=== PATIENT | female | born 1985 | race Caucasian/White ===

== ENCOUNTER 2016-09-16 08:58 | Emergency (ER) | payer SELFPAY ==
[~2016-09-16] VITALS: Ht 149.9 cm; Wt 71.7 kg
[~2016-09-16 08:58] MED LIST: CEPH500T PO; HYDR-971 PO
[2016-09-16 09:12] VITALS: BP 129/77
[2016-09-16] MEDS ORDERED: CLIN-44 PO (09:19)
[2016-09-16] MEDS ORDERED: HYDR-971 PO (09:19)
--- NOTE | 2016-09-16 09:19 | PHYS DOC ---
Past Medical History Past Medical History: Anxiety, Depression Additional Past Medical Histor: PTSD Past Surgical History: Other Additional Past Surgical Histo: LEAP Procedure Alcohol Use: Occasionally Drug Use: None Adult General Chief Complaint Chief Complaint: DENTAL PROBLEM HPI HPI Patient is a 31 year old female who presents with dental pain. Patient reports nearly 1 month history of pain to front maxillary teeth. Denies fevers or chills , nausea or vomiting, drainage, trismus, difficulty breathing or swallowing. Has not seen a dentist. Review of Systems Review of Systems Constitutional: Denies fever or chills HENT: Reports dental pain Respiratory: Denies cough or shortness of breath Cardiovascular: Denies chest pain GI: Denies abdominal pain, nausea, vomiting Musculoskeletal: Denies back pain or joint pain Integument: Denies rash Neurologic: Denies headache Current Medications Current Medications Current Medications Medications (Trade) Dose Ordered Sig/Shyann Start Time Stop Time Status Last Admin Dose Admin Acetaminophen/ Hydrocodone Bitart (Lortab 5/325) 2 tab 1X ONCE 09/16/16 09:30 09/16/16 09:30 DC 09/16/16 09:21 2 TAB Allergies Allergies Allergies Coded Allergies Type Severity Reaction Last Updated Verified amoxicillin Adverse Reaction Intermediate "N/V/D" 09/16/16 No Physical Exam Physical Exam Constitutional: Well developed, well nourished, no acute distress, non-toxic appearance. HENT: Normocephalic, atraumatic, bilateral external ears normal, oropharynx moist, nose normal. poor dentition with severe decay & missing teeth. tooth # 8 blackened, surrounding gingival erythema & inflammation without palpable abscess, no trismus, no jaw swelling. Eyes: conjunctiva normal, no discharge. Cardiovascular: no edema. Lungs & Thorax: no respiratory distress. Abdomen: nondistended. Skin: Warm, dry, Extremities: No deformity Neurologic: Alert and oriented X 3 Current Patient Data Vital Signs Vital Signs Date Time Temp Pulse Resp B/P Pulse Ox O2 Delivery O2 Flow Rate FiO2 09/16/16 09:21 18 98 Room Air 09/16/16 09:12 98.2 91 98.2 EKG EKG [] Radiology/Procedures Radiology/Procedures [] Course & Med Decision Making Course & Med Decision Making Pertinent Labs and Imaging studies reviewed. (See chart for details) Patient presents with dental infection. No sign of abscess at this time. Continue ibuprofen and apply ice packs. Gave prescription for [place] for severe breakthrough pain, advised not to drink alcohol or drive while taking this medication. She did receive a dose here and has a ride so she will not be driving. She has penicillin allergies to provided prescription for clindamycin. Recommend follow up as soon as possible with a dentist for definitive management. Patient discharged home in stable condition. [] Dragon Disclaimer Dragon Disclaimer This electronic medical record was generated, in whole or in part, using a voice recognition dictation system. Departure Departure Impression: Primary Impression: Dental infection Disposition: HOME, SELF-CARE Condition: STABLE Referrals: NO PCP (PCP) Patient Instructions: Dental Pain, [id number] Additional Instructions: You were seen in the emergency department today for dental pain & infection. Please rest, apply ice packs, take ibuprofen 600 mg (3 tablets) 3 times daily, use norco for severe breakthrough pain, take antibiotics. No drinking alcohol or driving while taking norco. Follow up as soon as possible with a dentist. Come back for difficulty breathing or swallowing, or otherwise worsening condition. Scripts Clindamycin Hcl 150 Mg [id number] Mg PO TID #63 CAP Prov:TERESO CARRINGTON MD 09/16/16 Hydrocodone/Apap 5-325 ([place] 5-325 Tablet)1 Each Tablet1 Tab PO PRN Q6HRS PRN PAIN #10 TAB Prov:TERESO CARRINGTON MD 09/16/16 TERESO CARRINGTON MD Sep 16, 2016 09:19
[2016-09-16] MEDS ORDERED: HYDROCODONE/APAP 5/325MG TABLET. PO ONE (09:30)
== END 2016-09-16 09:28 | disposition home or self-care (01) ==
LOC: ER 08:58
DX: K04.7 Periapical abscess without sinus (principal); F43.10 Post-traumatic stress disorder, unspecified; Z88.1 Allergy status to other antibiotic agents
CPT/HCPCS: 99283

== ENCOUNTER 2017-01-06 01:00 | Inpatient (IN) | payer SELFPAY ==
[~2017-01-06] VITALS: Ht 149.9 cm; Wt 71.7 kg
[~2017-01-06 01:00] MED LIST changes: +CLIN150C14 PO
[2017-01-06 02:29] LABS: BILIRUBIN,URINE NEGATIVE (NEG); GLUCOSE,URINE NEGATIVE (NEG); NITRITE,URINE NEGATIVE (NEG); PH,URINE 6.5; PROTEIN,URINE NEGATIVE (NEG-TRACE); UROBILINOGEN,URINE 0.2 mg/dL (0.2 mg/dL)
[2017-01-06 02:36] LABS: BACTERIA,URINE MOD /HPF (0-FEW); RBC,URINE 0 /HPF (0-2); SQUAMOUS EPITHELIAL CELL,UR FEW /LPF; WBC,URINE OCC /HPF (0-4)
[2017-01-06 02:43] LABS: BASO # 0.1 x10^3/uL (0.0-0.2); BASO % 1 % (0-3); EOS % 2 % (0-3); HEMATOCRIT 40.5 % (36.0-47.0); HEMOGLOBIN 13.3 g/dL (12.0-15.5); LYMPH # 2.9 x10^3/uL (1.0-4.8); LYMPH % 31 % (24-48); MEAN CORPUSCULAR HEMOGLOBIN 29 pg (25-35); MEAN CORPUSCULAR HGB CONC 33 g/dL (31-37); MEAN CORPUSCULAR VOLUME 88 fL (79-100); MONO % 7 % (0-9); NEUT % 58 % (31-73); PLATELET COUNT 300 x10^3/uL (140-400); RED BLOOD COUNT 4.58 x10^6/uL (3.50-5.40); RED CELL DISTRIBUTION WIDTH 13.6 % (11.5-14.5); WHITE BLOOD COUNT 9.3 x10^3/uL (4.0-11.0)
[2017-01-06] MEDS ORDERED: ONDANSETRON PF 4 MG/2 ML VIAL. IV ONE (03:00)
[2017-01-06] MEDS ORDERED: IV NORMAL SALINE 1000ML BAG 1,000 ML IV SCH (03:00)
[2017-01-06] MEDS ORDERED: KETOROLAC TROMETHAMINE 30 MG/ML INJ. IV ONE (03:00)
[2017-01-06 03:10] LABS: CALCIUM 8.7 mg/dL (8.5-10.1); CREATININE 0.7 mg/dL (0.6-1.0); GFR 98.9
[2017-01-06 03:16] LABS: ALBUMIN 3.3 g/dL (3.4-5.0); ALBUMIN/GLOBULIN RATIO 0.8 (1.0-1.7); TOTAL BILIRUBIN 0.1 mg/dL (0.2-1.0); TOTAL PROTEIN 7.2 g/dL (6.4-8.2)
--- NOTE | 2017-01-06 03:28 | RAD ---
INDICATION: RUQ PAIN, N/V/ COMPARISON: None. TECHNIQUE: Grayscale and color ultrasound images obtained through the abdomen. FINDINGS: Aorta/IVC: Visualized portion unremarkable. Pancreas: Visualized portions unremarkable. Portions are not well seen. Liver: Echotexture within normal limits. Gallbladder: Suspected stone in the gallbladder neck. There is some distention of the gallbladder. Common Bile Duct: Not dilated. Right Kidney: No hydronephrosis. IMPRESSION: Stone is identified with within the gallbladder neck region with some distention of the gallbladder. Electronically signed by: Elliot Mathews MD (01/06/2017 3:25 AM) [id number]
[2017-01-06] MEDS ORDERED: fentaNYL PF VIAL 100 MCG/2 ML VIAL IV PRN ×2 (04:30→08:30)
[2017-01-06] MEDS ORDERED: ONDANSETRON PF 4 MG/2 ML VIAL. IV PRN ×2 (05:30→08:21)
[2017-01-06] MEDS: MORPHINE SULFATE 4 MG/ML DISP.SYRIN. IV PRN ×3 (06:17→16:11)
[2017-01-06] MEDS: IV NORMAL SALINE 1000ML BAG 1,000 ML IV SCH ×3 (06:17→20:48)
[2017-01-06 07:00] VITALS: BP 123/79
[2017-01-06] MEDS ORDERED: CLON0.5T PO (07:46)
[2017-01-06] MEDS ORDERED: BUPR150T15 PO (07:46)
--- NOTE | 2017-01-06 07:46 | ED.ADGEN ---
Past Medical History Past Medical History: Anxiety, Depression Additional Past Medical Histor: ptsd, "cutting" Past Surgical History: Other Additional Past Surgical Histo: LEAP Procedure Alcohol Use: Occasionally Drug Use: None Adult General Chief Complaint Chief Complaint: ABDOMINAL PAIN HPI HPI Patient is a 31 year old woman, history of anxiety, depression, PTSD, who presents the emergency department with a complaint of recurrent abdominal pain associated with nausea, and vomiting. Denies any diarrhea, denies any fevers or chills, denies any injuries, any weakness, numbness or tingling. States pain begins in the epigastric and right upper quadrant and wraps around to her right back. She states that she has a feeling of "fullness", and sharp stabbing pain that is initiated with any oral intake. She states it is been growing progressively worse and more persistent over the past several weeks. Patient has not previously sought evaluation for this issue, states that tonight the pain was more persistent, and associated with worsening nausea and vomiting, prompting her to come to the ED for evaluation. She is not previously had any surgeries or procedures performed in her abdomen. Review of Systems Review of Systems Constitutional: Denies fever or chills. [] Eyes: Denies change in visual acuity. [] HENT: Denies nasal congestion or sore throat. [] Respiratory: Denies cough or shortness of breath. [] Cardiovascular: Denies chest pain or edema. [] GI: Upper abdominal pain radiating to the back, nausea, vomiting, no bloody stools or diarrhea. : Denies dysuria. [] Musculoskeletal: Denies back pain or joint pain. [] Integument: Denies rash. [] Neurologic: Denies headache, focal weakness or sensory changes. [] Endocrine: Denies polyuria or polydipsia. [] Lymphatic: Denies swollen glands. [] Psychiatric: Denies depression or anxiety. [] Current Medications Current Medications Current Medications Medications (Trade) Dose Ordered Sig/Shyann Start Time Stop Time Status Last Admin Dose Admin Ketorolac Tromethamine (Toradol) 10 mg 1X ONCE 01/06/17 03:00 01/06/17 03:01 DC 01/06/17 03:06 10 MG Ondansetron HCl (Zofran) 4 mg 1X ONCE 01/06/17 03:00 01/06/17 03:01 DC 01/06/17 03:05 4 MG Sodium Chloride 1,000 ml @ 1,000 mls/hr Q1H 01/06/17 03:00 01/06/17 03:59 DC 01/06/17 03:05 1,000 MLS/HR Allergies Allergies Allergies Coded Allergies Type Severity Reaction Last Updated Verified amoxicillin Adverse Reaction Intermediate "N/V/D" 09/16/16 No Physical Exam Physical Exam Constitutional: Well developed, well nourished, appears uncomfortable, non- toxic appearance. [] HENT: Normocephalic, atraumatic, bilateral external ears normal, oropharynx moist, no oral exudates, nose normal. [] Eyes: PERRLA, EOMI, conjunctiva normal, no discharge. [] Neck: Normal range of motion, no tenderness, supple, no stridor. [] Cardiovascular:Heart rate regular rhythm, no murmur, S1, S2, no rubs or gallops. [] Lungs & Thorax: Bilateral breath sounds clear to auscultation, no wheezing, rhonchi, rales. No chest or crepitus or tenderness. [] Abdomen: Bowel sounds normal, soft, tenderness palpation in the right upper quadrant, with a positive San's, no rebound, rigidity, positive for voluntary guarding, no masses, no pulsatile masses. [] Skin: Warm, dry, no erythema, no rash. [] Back: No tenderness, no CVA tenderness. [] Extremities: No tenderness, no cyanosis, no clubbing, ROM intact, no edema. [] Neurologic: Alert and oriented X 3, normal motor function, normal sensory function, no focal deficits noted. [] Psychologic: Affect normal, judgement normal, mood normal. [] Current Patient Data Vital Signs Vital Signs Date Time Temp Pulse Resp B/P (MAP) Pulse Ox O2 Delivery O2 Flow Rate FiO2 01/06/17 04:00 106 20 146/80 (102) 100 Room Air 01/06/17 01:56 98.1 98.1 Lab Values Laboratory Tests Test 01/06/17 00:50 01/06/17 01:45 01/06/17 02:25 POC Urine HCG, Qualitative Hcg negative (Negative) Urine Collection Type Unknown Urine Color Yellow Urine Clarity Clear Urine pH 6.5 Urine Specific [place] 1.020 Urine Protein Negative mg/dL (NEG-TRACE) Urine Glucose (UA) Negative mg/dL (NEG) Urine Ketones (Stick) Negative mg/dL (NEG) Urine Blood Negative (NEG) Urine Nitrite Negative (NEG) Urine Bilirubin Negative (NEG) Urine Urobilinogen Dipstick 0.2 mg/dL (0.2 mg/dL) Urine Leukocyte Esterase Negative (NEG) Urine RBC 0 /HPF (0-2) Urine WBC Occ /HPF (0-4) Urine Squamous Epithelial Cells Few /LPF Urine Bacteria Mod /HPF (0-FEW) Urine Mucus Slight /LPF White Blood Count 9.3 x10^3/uL (4.0-11.0) Red Blood Count 4.58 x10^6/uL (3.50-5.40) Hemoglobin 13.3 g/dL (12.0-15.5) Hematocrit 40.5 % (36.0-47.0) Mean Corpuscular Volume 88 fL (79-100) Mean Corpuscular Hemoglobin 29 pg (25-35) Mean Corpuscular Hemoglobin Concent 33 g/dL (31-37) Red Cell Distribution Width 13.6 % (11.5-14.5) Platelet Count 300 x10^3/uL (140-400) Neutrophils (%) (Auto) 58 % (31-73) Lymphocytes (%) (Auto) 31 % (24-48) Monocytes (%) (Auto) 7 % (0-9) Eosinophils (%) (Auto) 2 % (0-3) Basophils (%) (Auto) 1 % (0-3) Neutrophils # (Auto) 5.4 x10^3uL (1.8-7.7) Lymphocytes # (Auto) 2.9 x10^3/uL (1.0-4.8) Monocytes # (Auto) 0.7 x10^3/uL (0.0-1.1) Eosinophils # (Auto) 0.2 x10^3/uL (0.0-0.7) Basophils # (Auto) 0.1 x10^3/uL (0.0-0.2) Sodium Level 140 mmol/L (136-145) Potassium Level 4.0 mmol/L (3.5-5.1) Chloride Level 104 mmol/L (98-107) Carbon Dioxide Level 29 mmol/L (21-32) Anion Gap 7 (6-14) Blood Urea Nitrogen 15 mg/dL (7-20) Creatinine 0.7 mg/dL (0.6-1.0) Estimated GFR (Cockcroft-Gault) 98.9 BUN/Creatinine Ratio 21 (6-20) H Glucose Level 103 mg/dL (70-99) H Calcium Level 8.7 mg/dL (8.5-10.1) Total Bilirubin 0.1 mg/dL (0.2-1.0) L Aspartate Amino Transferase (AST) 14 U/L (15-37) L Alanine Aminotransferase (ALT) 23 U/L (14-59) Alkaline Phosphatase 85 U/L (46-116) Total Protein 7.2 g/dL (6.4-8.2) Albumin 3.3 g/dL (3.4-5.0) L Albumin/Globulin Ratio 0.8 (1.0-1.7) L Lipase 118 U/L (73-393) Laboratory Tests 01/06/17 02:25 Laboratory Tests 01/06/17 02:25 EKG EKG Not indicated. Radiology/Procedures Radiology/Procedures [][facility] [address] [place] [address] IMAGING REPORT Signed PATIENT: MARLEN DU ACCOUNT: [id number] : 1985 LOCATION: ER AGE: 31 SEX: F EXAM STATUS: REG ER ORD. PHYSICIAN: JANET MUKHERJEE DO REASON: RUQ pain/n/v PROCEDURE: ABDOMEN LTD INDICATION: RUQ PAIN, N/V/ COMPARISON: None. TECHNIQUE: Grayscale and color ultrasound images obtained through the abdomen. FINDINGS: Aorta/IVC: Visualized portion unremarkable. Pancreas: Visualized portions unremarkable. Portions are not well seen. Liver: Echotexture within normal limits. Gallbladder: Suspected stone in the gallbladder neck. There is some distention of the gallbladder. Common Bile Duct: Not dilated. Right Kidney: No hydronephrosis. IMPRESSION: Stone is identified with within the gallbladder neck region with some distention of the gallbladder. Electronically signed by: Yadiel Mcdonald MD (01/06/2017 3:25 AM) [facility] [place] DICTATED and SIGNED BY: YADIEL MCDONALD MD DATE: 01/06/17 0322 CC: JANET MUKHERJEE DO; NO PCP ~ Course & Med Decision Making Course & Med Decision Making Pertinent Labs and Imaging studies reviewed. (See chart for details) Patient's examination and history are concerning for a possible gallbladder pathology. Patient is agreeable to receiving antiemetics, pain medication, IV fluids, laboratory studies and ultrasound of the right upper quadrant. Imaging and laboratory studies obtained, no concerning findings identified laboratory studies, ultrasound of the river quadrant reveals a distended gallbladder with stone in the gallbladder neck. Mild duct is normal, no pericholecystic fluid. On reevaluation, patient states she still expressing pain and nausea, and receiving several doses of medication, is agreeable for admission to the hospital for biliary colic, for evaluation by GI and general surgery. Findings as above discussed with Dr. Ventura of internal medicine, patient accepted to her service as a full admission to the medical surgical floor, with continued symptoms management, and consultation with GI and general surgery. Bridge orders entered per discussion. Patient remained stable in the emergency department, transferred to the floor without issue. Dragon Disclaimer Dragon Disclaimer This electronic medical record was generated, in whole or in part, using a voice recognition dictation system. Departure Impression: Primary Impression: Biliary colic Disposition: ADMITTED INPATIENT Admitting Physician: Gardenia Ventura ERIN M DO Jan 06, 2017 07:46
[2017-01-06] MEDS ORDERED: IV RINGERS,LACTATED 1000ML 1,000 ML IV SCH (08:25)
[2017-01-06] MEDS ORDERED: HYDROmorphone 2 MG/ML VIAL IV PRN (08:30)
[2017-01-06] MEDS ORDERED: MORPHINE SULFATE 2 MG/ML DISP.SYRIN. IV PRN (08:30)
[2017-01-06] MEDS ORDERED: clonazePAM 0.5 MG TABLET PO PRN (08:30)
[2017-01-06] MEDS ORDERED: PROCHLORPERAZINE 10 MG/2 ML VIAL. IV PRN (08:30)
[2017-01-06] MEDS ORDERED: LIDOCAINE 1% 1 ML SYRINGE. ID PRN (08:30)
--- NOTE | 2017-01-06 08:52 | PDOC2 ---
CONSULT Date of Consult Date of Consult DATE: 01/06/17 TIME: 08:49 History of Present Illness Reason for Visit: The patient is a 31 year old female who reported to the ER with abdominal pain. The pain was located in the RUQ with radiation to the back. She has had several prior similar episodes over the last few months. Recently the frequency of the pain has increased. She has associated nausea, no vomiting. Past Medical History Past Medical History depression/anxiety Past Surgical History Past Surgical History LEEP, wisdom teeth Social History <1 pack per day ALCOHOL: rare Lives: with Family Current Problem List Problem List Problems Medical Problems: (1) Biliary colic Status: Acute Current Medications Current Medications Current Medications Sodium Chloride 1,000 ml @ 1,000 mls/hr Q1H IV Last administered on 01/06/17 03:05; Start 01/06/17 at 03:00; Stop 01/06/17 at 03:59; Status DC Ondansetron HCl (Zofran) 4 mg 1X ONCE IV Last administered on 01/06/17 03:05; Start 01/06/17 at 03:00; Stop 01/06/17 at 03:01; Status DC Ketorolac Tromethamine (Toradol) 10 mg 1X ONCE IV Last administered on 03:06; Start 01/06/17 at 03:00; Stop 01/06/17 at 03:01; Status DC Fentanyl Citrate (Fentanyl 2ml Vial) 50 mcg PRN Q15MIN PRN IV PAIN GREATER THAN 3/10 Last administered on 01/06/17 04:36; Start 01/06/17 at 04:30; Stop 01/07 at 04:29 Ondansetron HCl (Zofran) 4 mg PRN Q8HRS PRN IV NAUSEA/VOMITING; Start 01/06/17 at 05:30; Stop 01/06/17 at 08:22; Status DC Morphine Sulfate 4 mg PRN Q2HR PRN IV SEVERE PAIN Last administered on 06:17; Start 01/06/17 at 05:30; Stop 01/07/17 at 05:29 Sodium Chloride 1,000 ml @ 125 mls/hr Q8H IV Last administered on 01/06/17 06: 17; Start 01/06/17 at 05:25; Stop 01/07/17 at 05:24 Levofloxacin/ Dextrose 100 ml @ 100 mls/hr Q24H IV ; Start 01/06/17 at 09:00 Metronidazole 100 ml @ 100 mls/hr Q12HR IV ; Start 01/06/17 at 09:00 Ondansetron HCl (Zofran) 4 mg PRN Q6HRS PRN IV NAUSEA/VOMITING; Start 01/06/17 at 08:21 Bupropion HCl (Wellbutrin Xl) 150 mg DAILY PO ; Start 01/06/17 at 09:00 Clonazepam (KlonoPIN) 0.5 mg PRN BID PRN PO ANXIETY / AGITATION; Start 01/06/17 at 08:30 Famotidine (Pepcid) 20 mg QHS IVP ; Start 01/06/17 at 21:00 Fentanyl Citrate (Fentanyl 2ml Vial) 25 mcg PRN Q5MIN PRN IV MILD PAIN; Start 01/06/17 at 08:30; Stop 01/07/17 at 08:29 Fentanyl Citrate (Fentanyl 2ml Vial) 50 mcg PRN Q5MIN PRN IV MODERATE PAIN; Start 01/06/17 at 08:30; Stop 01/07/17 at 08:29 Morphine Sulfate 1 mg PRN Q10MIN PRN IV SEVERE PAIN; Start 01/06/17 at 08:30; Stop 01/07/17 at 08:29 Ringer's Solution 1,000 ml @ 30 mls/hr Q24H IV ; Start 01/06/17 at 08:25; Stop 01/06/17 at 20:24 Lidocaine HCl 2 ml PRN 1X PRN ID PRIOR TO IV START; Start 01/06/17 at 08:30; Stop 01/07/17 at 08:29 Hydromorphone HCl (Dilaudid) 0.5 mg PRN Q10MIN PRN IV SEV PAIN, Second choice; Start 01/06/17 at 08:30; Stop 01/07/17 at 08:29 Prochlorperazine Edisylate (Compazine) 5 mg PACU PRN PRN IV NAUSEA, MRX1; Start 01/06/17 at 08:30; Stop 01/07/17 at 08:29 Active Scripts Active Reported Wellbutrin Xl (Bupropion Hcl) 150 Mg Tab.er.24h 1 Tab PO DAILY Klonopin (Clonazepam) 0.5 Mg Tablet 1 Tab PO BID PRN Allergies Allergies: Coded Allergies: amoxicillin (Unverified Adverse Reaction, Intermediate, "N/V/D", 09/16/16) ROS General: No: Chills, Night Sweats, Fatigue, Malaise, Appetite, Other PSYCHOLOGICAL ROS: No: Anxiety, Behavioral Disorder, Concentration difficultie , Decreased libido, Depression, Disorientation, Hallucinations, Hostility, Irritablity, Memory difficulties, Mood Swings, Obsessive thoughts, Physical abuse, Sexual abuse, Sleep disturbances, Suicidal ideation, Other Eyes: No Blurry vision, No Decreased vision, No Double vision, No Dry eyes, No Excessive tearing, No Eye Pain, No Itchy Eyes, No Loss of vision, No Photophobia , No Scotomata, No Uses contacts, No Uses glasses, No Other HEENT: No: Heacaches, Visual Changes, Hearing change, Nasal congestion, Nasal discharge, Oral lesions, Sinus pain, Sore Throat, Epistaxis, Sneezing, Snoring, Tinnitus, Vertigo, Vocal changes, Other ALLERGY AND IMMUNOLOGY: No: Hives, Insect Bite Sensitivity, Itchy/Watery Eyes, Nasal Congestion, Post Nasal Drip, Seasonal Allergies, Other Hematological and Lymphatic: No: Bleeding Problems, Blood Clots, Blood Transfusions, Brusing, Night Sweats, Pallor, Swollen Lymph Nodes, Other ENDOCRINE: No: Breast Changes, Galactorrhea, Hair Pattern Changes, Hot Flashes , Malaise/lethargy, Mood Swings, Palpitations, Polydipsia/polyuria, Skin Changes , Temperature Intolerance, Unexpected Weight Changes, Other Respiratory: No: Cough, Hemoptysis, Orthopnea, Pleuritic Pain, Shortness of breath, SOB with excertion, Sputum Changes, Stridor, Tachypnea, Wheezing, Other Cardiovascular: No Chest Pain, No Palpitations, No Orthopnea, No Paroxysmal Noc. Dyspnea, No Edema, No Lt Headedness, No Other Gastrointestinal: Yes Nausea, Yes Abdominal Pain Genitourinary: No Dysuria, No Frequency, No Incontinence, No Hematuria, No Retention, No Discharge, No Urgency, No Pain, No Flank Pain, No Other, No , No , No , No , No , No , No Musculoskeletal: No Gait Disturbance, No Joint Pain, No Joint Stiffness, No Joint Swelling, No Muscle Pain, No Muscular Weakness, No Pain In:, No Swelling In:, No Other Skin: No Dry Skin, No Eczema, No Hair Changes, No Lumps, No Mole Changes, No Mottling, No Nail Changes, No Pruritus, No Rash, No Skin Lesion Changes, No Other, No Acne Physical Exam General: Alert, Oriented X3, Cooperative HEENT: Atraumatic, PERRLA Lungs: Clear to auscultation Abdomen: Soft (mildly obese, tender in RUQ with palpation, no guarding) Extremities: No clubbing, No cyanosis Skin: No rashes Neuro: Normal speech Psych/Mental Status: Mental status NL MUSCULOSKELETAL: No joint tenderness, No deformity Vitals VITALS Vital Signs Date Time Temp Pulse Resp B/P (MAP) Pulse Ox O2 Delivery O2 Flow Rate FiO2 01/06/17 07:00 96.6 75 123/79 (94) 98 Room Air 96.6 01/06/17 06:17 20 Labs Labs Laboratory Tests Test 01/06/17 00:50 01/06/17 01:45 01/06/17 02:25 Bedside Urine HCG, Qualitative Hcg negative (Negative) Urine Collection Type Unknown Urine Color Yellow Urine Clarity Clear Urine pH 6.5 Urine Specific [place] 1.020 Urine Protein Negative mg/dL (NEG-TRACE) Urine Glucose (UA) Negative mg/dL (NEG) Urine Ketones (Stick) Negative mg/dL (NEG) Urine Blood Negative (NEG) Urine Nitrite Negative (NEG) Urine Bilirubin Negative (NEG) Urine Urobilinogen Dipstick 0.2 mg/dL (0.2 mg/dL) Urine Leukocyte Esterase Negative (NEG) Urine RBC 0 /HPF (0-2) Urine WBC Occ /HPF (0-4) Urine Squamous Epithelial Cells Few /LPF Urine Bacteria Mod /HPF (0-FEW) Urine Mucus Slight /LPF White Blood Count 9.3 x10^3/uL (4.0-11.0) Red Blood Count 4.58 x10^6/uL (3.50-5.40) Hemoglobin 13.3 g/dL (12.0-15.5) Hematocrit 40.5 % (36.0-47.0) Mean Corpuscular Volume 88 fL (79-100) Mean Corpuscular Hemoglobin 29 pg (25-35) Mean Corpuscular Hemoglobin Concent 33 g/dL (31-37) Red Cell Distribution Width 13.6 % (11.5-14.5) Platelet Count 300 x10^3/uL (140-400) Neutrophils (%) (Auto) 58 % (31-73) Lymphocytes (%) (Auto) 31 % (24-48) Monocytes (%) (Auto) 7 % (0-9) Eosinophils (%) (Auto) 2 % (0-3) Basophils (%) (Auto) 1 % (0-3) Neutrophils # (Auto) 5.4 x10^3uL (1.8-7.7) Lymphocytes # (Auto) 2.9 x10^3/uL (1.0-4.8) Monocytes # (Auto) 0.7 x10^3/uL (0.0-1.1) Eosinophils # (Auto) 0.2 x10^3/uL (0.0-0.7) Basophils # (Auto) 0.1 x10^3/uL (0.0-0.2) Sodium Level 140 mmol/L (136-145) Potassium Level 4.0 mmol/L (3.5-5.1) Chloride Level 104 mmol/L (98-107) Carbon Dioxide Level 29 mmol/L (21-32) Anion Gap 7 (6-14) Blood Urea Nitrogen 15 mg/dL (7-20) Creatinine 0.7 mg/dL (0.6-1.0) Estimated GFR (Cockcroft-Gault) 98.9 BUN/Creatinine Ratio 21 (6-20) Glucose Level 103 mg/dL (70-99) Calcium Level 8.7 mg/dL (8.5-10.1) Total Bilirubin 0.1 mg/dL (0.2-1.0) Aspartate Amino Transf (AST/SGOT) 14 U/L (15-37) Alanine Aminotransferase (ALT/SGPT) 23 U/L (14-59) Alkaline Phosphatase 85 U/L (46-116) Total Protein 7.2 g/dL (6.4-8.2) Albumin 3.3 g/dL (3.4-5.0) Albumin/Globulin Ratio 0.8 (1.0-1.7) Lipase 118 U/L (73-393) Laboratory Tests Test 01/06/17 00:50 01/06/17 01:45 01/06/17 02:25 Bedside Urine HCG, Qualitative Hcg negative (Negative) Urine Collection Type Unknown Urine Color Yellow Urine Clarity Clear Urine pH 6.5 Urine Specific [place] 1.020 Urine Protein Negative mg/dL (NEG-TRACE) Urine Glucose (UA) Negative mg/dL (NEG) Urine Ketones (Stick) Negative mg/dL (NEG) Urine Blood Negative (NEG) Urine Nitrite Negative (NEG) Urine Bilirubin Negative (NEG) Urine Urobilinogen Dipstick 0.2 mg/dL (0.2 mg/dL) Urine Leukocyte Esterase Negative (NEG) Urine RBC 0 /HPF (0-2) Urine WBC Occ /HPF (0-4) Urine Squamous Epithelial Cells Few /LPF Urine Bacteria Mod /HPF (0-FEW) Urine Mucus Slight /LPF White Blood Count 9.3 x10^3/uL (4.0-11.0) Red Blood Count 4.58 x10^6/uL (3.50-5.40) Hemoglobin 13.3 g/dL (12.0-15.5) Hematocrit 40.5 % (36.0-47.0) Mean Corpuscular Volume 88 fL (79-100) Mean Corpuscular Hemoglobin 29 pg (25-35) Mean Corpuscular Hemoglobin Concent 33 g/dL (31-37) Red Cell Distribution Width 13.6 % (11.5-14.5) Platelet Count 300 x10^3/uL (140-400) Neutrophils (%) (Auto) 58 % (31-73) Lymphocytes (%) (Auto) 31 % (24-48) Monocytes (%) (Auto) 7 % (0-9) Eosinophils (%) (Auto) 2 % (0-3) Basophils (%) (Auto) 1 % (0-3) Neutrophils # (Auto) 5.4 x10^3uL (1.8-7.7) Lymphocytes # (Auto) 2.9 x10^3/uL (1.0-4.8) Monocytes # (Auto) 0.7 x10^3/uL (0.0-1.1) Eosinophils # (Auto) 0.2 x10^3/uL (0.0-0.7) Basophils # (Auto) 0.1 x10^3/uL (0.0-0.2) Sodium Level 140 mmol/L (136-145) Potassium Level 4.0 mmol/L (3.5-5.1) Chloride Level 104 mmol/L (98-107) Carbon Dioxide Level 29 mmol/L (21-32) Anion Gap 7 (6-14) Blood Urea Nitrogen 15 mg/dL (7-20) Creatinine 0.7 mg/dL (0.6-1.0) Estimated GFR (Cockcroft-Gault) 98.9 BUN/Creatinine Ratio 21 (6-20) Glucose Level 103 mg/dL (70-99) Calcium Level 8.7 mg/dL (8.5-10.1) Total Bilirubin 0.1 mg/dL (0.2-1.0) Aspartate Amino Transf (AST/SGOT) 14 U/L (15-37) Alanine Aminotransferase (ALT/SGPT) 23 U/L (14-59) Alkaline Phosphatase 85 U/L (46-116) Total Protein 7.2 g/dL (6.4-8.2) Albumin 3.3 g/dL (3.4-5.0) Albumin/Globulin Ratio 0.8 (1.0-1.7) Lipase 118 U/L (73-393) Images Images Sonogram: IMPRESSION: Stone is identified with within the gallbladder neck region with some distention of the gallbladder. Assessment/Plan Assessment/Plan RUQ pain, gallstones; recommend laparoscopic cholecystectomy; the details and risks of surgery were discussed with the patient. She understands and would like to proceed. ARNOLDO SPANGLER MD Jan 06, 2017 08:52
--- NOTE | 2017-01-06 09:37 | PDOC2 ---
GI CONSULT Reason For Consult: Biliary colic HPI: HPI: 31 y/o female who has felt ill w/ abdominal fullness, epigastric/RUQ ache, and stabbing back pain x 1.5 weeks. Some nausea w/o vomiting. Tried Pepto, Tums, Gas-X, and ibuprofen w/o relief. Labs unremarkable, US w/ stone in GB neck and some GB fullness. Has seen Dr. Rodriguez, plans for cholecystectomy. On IV H2 meghann, also atbx. Denies reflux/heartburn, dysphagia, diarrhea, constipation, hematochezia, melena , and weight loss. No previous EGD or colonoscopy. PMH: PMH: anxiety/depression, PTSD, ADHD, insomnia, hypothyroidism, LEEP procedure, wisdom teeth extraction FH: Family History: Cancer (lung, breast) Social History: Smoke: <1 pack per day ALCOHOL: other (1 bottle of wine or a couple cocktails each week) Drugs: Marijuana ROS: GEN: Denies fevers, chills, sweats HEENT: Denies blurred vision, sore throat CV: Denies chest pain RESP: Denies shortness of air, cough GI: Per HPI : Denies hematuria, dysuria ENDO: Denies weight changes NEURO: Denies confusion, dizziness MSK: Denies weakness, joint pain/swelling SKIN: Denies jaundice, pruritus Vitals: Vitals: Vital Signs Date Time Temp Pulse Resp B/P (MAP) Pulse Ox O2 Delivery O2 Flow Rate FiO2 01/06/17 07:00 96.6 75 123/79 (94) 98 Room Air 96.6 01/06/17 06:17 20 Labs: Labs: Laboratory Tests Test 01/06/17 00:50 01/06/17 01:45 01/06/17 02:25 Bedside Urine HCG, Qualitative Hcg negative (Negative) Urine Collection Type Unknown Urine Color Yellow Urine Clarity Clear Urine pH 6.5 Urine Specific [place] 1.020 Urine Protein Negative mg/dL (NEG-TRACE) Urine Glucose (UA) Negative mg/dL (NEG) Urine Ketones (Stick) Negative mg/dL (NEG) Urine Blood Negative (NEG) Urine Nitrite Negative (NEG) Urine Bilirubin Negative (NEG) Urine Urobilinogen Dipstick 0.2 mg/dL (0.2 mg/dL) Urine Leukocyte Esterase Negative (NEG) Urine RBC 0 /HPF (0-2) Urine WBC Occ /HPF (0-4) Urine Squamous Epithelial Cells Few /LPF Urine Bacteria Mod /HPF (0-FEW) Urine Mucus Slight /LPF White Blood Count 9.3 x10^3/uL (4.0-11.0) Red Blood Count 4.58 x10^6/uL (3.50-5.40) Hemoglobin 13.3 g/dL (12.0-15.5) Hematocrit 40.5 % (36.0-47.0) Mean Corpuscular Volume 88 fL (79-100) Mean Corpuscular Hemoglobin 29 pg (25-35) Mean Corpuscular Hemoglobin Concent 33 g/dL (31-37) Red Cell Distribution Width 13.6 % (11.5-14.5) Platelet Count 300 x10^3/uL (140-400) Neutrophils (%) (Auto) 58 % (31-73) Lymphocytes (%) (Auto) 31 % (24-48) Monocytes (%) (Auto) 7 % (0-9) Eosinophils (%) (Auto) 2 % (0-3) Basophils (%) (Auto) 1 % (0-3) Neutrophils # (Auto) 5.4 x10^3uL (1.8-7.7) Lymphocytes # (Auto) 2.9 x10^3/uL (1.0-4.8) Monocytes # (Auto) 0.7 x10^3/uL (0.0-1.1) Eosinophils # (Auto) 0.2 x10^3/uL (0.0-0.7) Basophils # (Auto) 0.1 x10^3/uL (0.0-0.2) Sodium Level 140 mmol/L (136-145) Potassium Level 4.0 mmol/L (3.5-5.1) Chloride Level 104 mmol/L (98-107) Carbon Dioxide Level 29 mmol/L (21-32) Anion Gap 7 (6-14) Blood Urea Nitrogen 15 mg/dL (7-20) Creatinine 0.7 mg/dL (0.6-1.0) Estimated GFR (Cockcroft-Gault) 98.9 BUN/Creatinine Ratio 21 (6-20) Glucose Level 103 mg/dL (70-99) Calcium Level 8.7 mg/dL (8.5-10.1) Total Bilirubin 0.1 mg/dL (0.2-1.0) Aspartate Amino Transf (AST/SGOT) 14 U/L (15-37) Alanine Aminotransferase (ALT/SGPT) 23 U/L (14-59) Alkaline Phosphatase 85 U/L (46-116) Total Protein 7.2 g/dL (6.4-8.2) Albumin 3.3 g/dL (3.4-5.0) Albumin/Globulin Ratio 0.8 (1.0-1.7) Lipase 118 U/L (73-393) Allergies: Coded Allergies: amoxicillin (Unverified Adverse Reaction, Intermediate, "N/V/D", 09/16/16) Medications: Current Medications Medications (Trade) Dose Ordered Sig/Shyann Route PRN Reason Start Time Stop Time Status Last Admin Dose Admin Sodium Chloride 1,000 ml @ 1,000 mls/hr Q1H IV 01/06/17 03:00 01/06/17 03:59 DC 01/06/17 03:05 Ondansetron HCl (Zofran) 4 mg 1X ONCE IV 01/06/17 03:00 01/06/17 03:01 DC 01/06/17 03:05 Ketorolac Tromethamine (Toradol) 10 mg 1X ONCE IV 01/06/17 03:00 01/06/17 03:01 DC 01/06/17 03:06 Fentanyl Citrate (Fentanyl 2ml Vial) 50 mcg PRN Q15MIN PRN IV PAIN GREATER THAN 3/10 01/06/17 04:30 01/07/17 04:29 01/06/17 04:36 Morphine Sulfate 4 mg PRN Q2HR PRN IV SEVERE PAIN 01/06/17 05:30 01/07/17 05:29 01/06/17 06:17 Sodium Chloride 1,000 ml @ 125 mls/hr Q8H IV 01/06/17 05:25 01/07/17 05:24 01/06/17 06:17 Imaging: Imaging: RUQ US 01/06/17 IMPRESSION: Stone is identified with within the gallbladder neck region with some distention of the gallbladder. PE: GEN: NAD HEENT: Atraumatic, PERRL, poor dentition LUNGS: CTAB HEART: RRR ABD: NABS, S/ND/NT EXTREMITY: No edema SKIN: No rashes, no jaundice NEURO/PSYCH: A & O 3 A/P: A/P: Abd and back pain, nausea Cholelithiasis -- Plan for cholecystectomy w/ IOC. Will follow. KORY TORRES Jan 06, 2017 09:37
--- NOTE | 2017-01-06 10:21 | PDOC1 ---
History and Physical Date of Admission Date of Admission DATE: 01/06/17 TIME: 10:12 Identification/Chief Complaint Chief Complaint abd pain Problems: Source Source: Caregiver, Chart review, Patient History of Present Illness History of Present Illness 31 y.o Female, has been having intermittent RUQ pain for few mos, but worse last night , no fever, change in BM or emesis,. Went to ER, US shows stone in neck GB, Did discuss with ER MD to consult both GS and gI. GS has seen pt, planned for lap sheng later today,. LAbs reviewed, LFTs, ok, VS ok Past medcial: Depression only on 2 meds at home both antidepressant/anxiolytic Past Medical History Psych: Anxiety, Depression Past Surgical History Past Surgical History: Other (LEEP procedure) Family History Family History: Hypertension Social History Smoke: No ALCOHOL: none (1 bottle of wine or a couple cocktails each week) Drugs: Marijuana Current Problem List Problem List Problems Medical Problems: (1) Biliary colic Status: Acute Problems: Current Medications Current Medications Current Medications Sodium Chloride 1,000 ml @ 1,000 mls/hr Q1H IV Last administered on 01/06/17 03:05; Start 01/06/17 at 03:00; Stop 01/06/17 at 03:59; Status DC Ondansetron HCl (Zofran) 4 mg 1X ONCE IV Last administered on 01/06/17 03:05; Start 01/06/17 at 03:00; Stop 01/06/17 at 03:01; Status DC Ketorolac Tromethamine (Toradol) 10 mg 1X ONCE IV Last administered on 03:06; Start 01/06/17 at 03:00; Stop 01/06/17 at 03:01; Status DC Fentanyl Citrate (Fentanyl 2ml Vial) 50 mcg PRN Q15MIN PRN IV PAIN GREATER THAN 3/10 Last administered on 01/06/17 04:36; Start 01/06/17 at 04:30; Stop 01/07 at 04:29 Ondansetron HCl (Zofran) 4 mg PRN Q8HRS PRN IV NAUSEA/VOMITING; Start 01/06/17 at 05:30; Stop 01/06/17 at 08:22; Status DC Morphine Sulfate 4 mg PRN Q2HR PRN IV SEVERE PAIN Last administered on 09:45; Start 01/06/17 at 05:30; Stop 01/07/17 at 05:29 Sodium Chloride 1,000 ml @ 125 mls/hr Q8H IV Last administered on 01/06/17 06: 17; Start 01/06/17 at 05:25; Stop 01/07/17 at 05:24 Levofloxacin/ Dextrose 100 ml @ 100 mls/hr Q24H IV ; Start 01/06/17 at 09:00 Metronidazole 100 ml @ 100 mls/hr Q12HR IV Last administered on 01/06/17 09:44 ; Start 01/06/17 at 09:00 Ondansetron HCl (Zofran) 4 mg PRN Q6HRS PRN IV NAUSEA/VOMITING; Start 01/06/17 at 08:21 Bupropion HCl (Wellbutrin Xl) 150 mg DAILY PO ; Start 01/06/17 at 09:00 Clonazepam (KlonoPIN) 0.5 mg PRN BID PRN PO ANXIETY / AGITATION; Start 01/06/17 at 08:30 Famotidine (Pepcid) 20 mg QHS IVP ; Start 01/06/17 at 21:00 Fentanyl Citrate (Fentanyl 2ml Vial) 25 mcg PRN Q5MIN PRN IV MILD PAIN; Start 01/06/17 at 08:30; Stop 01/07/17 at 08:29 Fentanyl Citrate (Fentanyl 2ml Vial) 50 mcg PRN Q5MIN PRN IV MODERATE PAIN; Start 01/06/17 at 08:30; Stop 01/07/17 at 08:29 Morphine Sulfate 1 mg PRN Q10MIN PRN IV SEVERE PAIN; Start 01/06/17 at 08:30; Stop 01/07/17 at 08:29 Ringer's Solution 1,000 ml @ 30 mls/hr Q24H IV ; Start 01/06/17 at 08:25; Stop 01/06/17 at 20:24 Lidocaine HCl 2 ml PRN 1X PRN ID PRIOR TO IV START; Start 01/06/17 at 08:30; Stop 01/07/17 at 08:29 Hydromorphone HCl (Dilaudid) 0.5 mg PRN Q10MIN PRN IV SEV PAIN, Second choice; Start 01/06/17 at 08:30; Stop 01/07/17 at 08:29 Prochlorperazine Edisylate (Compazine) 5 mg PACU PRN PRN IV NAUSEA, MRX1; Start 01/06/17 at 08:30; Stop 01/07/17 at 08:29 Active Scripts Active Reported Wellbutrin Xl (Bupropion Hcl) 150 Mg Tab.er.24h 1 Tab PO DAILY Klonopin (Clonazepam) 0.5 Mg Tablet 1 Tab PO BID PRN Allergies Allergies: Coded Allergies: amoxicillin (Unverified Adverse Reaction, Intermediate, "N/V/D", 09/16/16) ROS Review of System all 14 pt reviewed, only abd pain, all else is neg Physical Exam General: Alert, Oriented X3, Cooperative, No acute distress HEENT: Atraumatic, PERRLA, EOMI Lungs: Clear to auscultation, Normal air movement Heart: S1S2, RRR, no thrills, no rubs, no gallops, no murmurs Cardiovascular: S1, S2 Breasts: Normal Abdomen: Soft, Other (tenderness RUQ area and R flank) Rectal Exam: not examined PELVIC: Nml ext genitalia Extremities: No clubbing, No cyanosis, No edema, Normal pulses, No tenderness/ swelling Skin: No rashes, No breakdown, No significant lesion Neuro: Normal gait, Normal speech, Strength at 5/5 X4 ext, Normal tone, Sensation intact, Cranial nerves 3-12 NL, Reflexes 2+ Psych/Mental Status: Mental status NL, Mood NL Vitals Vitals Vital Signs Date Time Temp Pulse Resp B/P (MAP) Pulse Ox O2 Delivery O2 Flow Rate FiO2 01/06/17 09:44 98 01/06/17 07:00 96.6 75 123/79 (94) Room Air 96.6 01/06/17 06:17 20 Labs Labs Laboratory Tests Test 01/06/17 00:50 01/06/17 01:45 01/06/17 02:25 Bedside Urine HCG, Qualitative Hcg negative (Negative) Urine Collection Type Unknown Urine Color Yellow Urine Clarity Clear Urine pH 6.5 Urine Specific [place] 1.020 Urine Protein Negative mg/dL (NEG-TRACE) Urine Glucose (UA) Negative mg/dL (NEG) Urine Ketones (Stick) Negative mg/dL (NEG) Urine Blood Negative (NEG) Urine Nitrite Negative (NEG) Urine Bilirubin Negative (NEG) Urine Urobilinogen Dipstick 0.2 mg/dL (0.2 mg/dL) Urine Leukocyte Esterase Negative (NEG) Urine RBC 0 /HPF (0-2) Urine WBC Occ /HPF (0-4) Urine Squamous Epithelial Cells Few /LPF Urine Bacteria Mod /HPF (0-FEW) Urine Mucus Slight /LPF White Blood Count 9.3 x10^3/uL (4.0-11.0) Red Blood Count 4.58 x10^6/uL (3.50-5.40) Hemoglobin 13.3 g/dL (12.0-15.5) Hematocrit 40.5 % (36.0-47.0) Mean Corpuscular Volume 88 fL (79-100) Mean Corpuscular Hemoglobin 29 pg (25-35) Mean Corpuscular Hemoglobin Concent 33 g/dL (31-37) Red Cell Distribution Width 13.6 % (11.5-14.5) Platelet Count 300 x10^3/uL (140-400) Neutrophils (%) (Auto) 58 % (31-73) Lymphocytes (%) (Auto) 31 % (24-48) Monocytes (%) (Auto) 7 % (0-9) Eosinophils (%) (Auto) 2 % (0-3) Basophils (%) (Auto) 1 % (0-3) Neutrophils # (Auto) 5.4 x10^3uL (1.8-7.7) Lymphocytes # (Auto) 2.9 x10^3/uL (1.0-4.8) Monocytes # (Auto) 0.7 x10^3/uL (0.0-1.1) Eosinophils # (Auto) 0.2 x10^3/uL (0.0-0.7) Basophils # (Auto) 0.1 x10^3/uL (0.0-0.2) Sodium Level 140 mmol/L (136-145) Potassium Level 4.0 mmol/L (3.5-5.1) Chloride Level 104 mmol/L (98-107) Carbon Dioxide Level 29 mmol/L (21-32) Anion Gap 7 (6-14) Blood Urea Nitrogen 15 mg/dL (7-20) Creatinine 0.7 mg/dL (0.6-1.0) Estimated GFR (Cockcroft-Gault) 98.9 BUN/Creatinine Ratio 21 (6-20) Glucose Level 103 mg/dL (70-99) Calcium Level 8.7 mg/dL (8.5-10.1) Total Bilirubin 0.1 mg/dL (0.2-1.0) Aspartate Amino Transf (AST/SGOT) 14 U/L (15-37) Alanine Aminotransferase (ALT/SGPT) 23 U/L (14-59) Alkaline Phosphatase 85 U/L (46-116) Total Protein 7.2 g/dL (6.4-8.2) Albumin 3.3 g/dL (3.4-5.0) Albumin/Globulin Ratio 0.8 (1.0-1.7) Lipase 118 U/L (73-393) Laboratory Tests Test 01/06/17 00:50 01/06/17 01:45 01/06/17 02:25 Bedside Urine HCG, Qualitative Hcg negative (Negative) Urine Collection Type Unknown Urine Color Yellow Urine Clarity Clear Urine pH 6.5 Urine Specific [place] 1.020 Urine Protein Negative mg/dL (NEG-TRACE) Urine Glucose (UA) Negative mg/dL (NEG) Urine Ketones (Stick) Negative mg/dL (NEG) Urine Blood Negative (NEG) Urine Nitrite Negative (NEG) Urine Bilirubin Negative (NEG) Urine Urobilinogen Dipstick 0.2 mg/dL (0.2 mg/dL) Urine Leukocyte Esterase Negative (NEG) Urine RBC 0 /HPF (0-2) Urine WBC Occ /HPF (0-4) Urine Squamous Epithelial Cells Few /LPF Urine Bacteria Mod /HPF (0-FEW) Urine Mucus Slight /LPF White Blood Count 9.3 x10^3/uL (4.0-11.0) Red Blood Count 4.58 x10^6/uL (3.50-5.40) Hemoglobin 13.3 g/dL (12.0-15.5) Hematocrit 40.5 % (36.0-47.0) Mean Corpuscular Volume 88 fL (79-100) Mean Corpuscular Hemoglobin 29 pg (25-35) Mean Corpuscular Hemoglobin Concent 33 g/dL (31-37) Red Cell Distribution Width 13.6 % (11.5-14.5) Platelet Count 300 x10^3/uL (140-400) Neutrophils (%) (Auto) 58 % (31-73) Lymphocytes (%) (Auto) 31 % (24-48) Monocytes (%) (Auto) 7 % (0-9) Eosinophils (%) (Auto) 2 % (0-3) Basophils (%) (Auto) 1 % (0-3) Neutrophils # (Auto) 5.4 x10^3uL (1.8-7.7) Lymphocytes # (Auto) 2.9 x10^3/uL (1.0-4.8) Monocytes # (Auto) 0.7 x10^3/uL (0.0-1.1) Eosinophils # (Auto) 0.2 x10^3/uL (0.0-0.7) Basophils # (Auto) 0.1 x10^3/uL (0.0-0.2) Sodium Level 140 mmol/L (136-145) Potassium Level 4.0 mmol/L (3.5-5.1) Chloride Level 104 mmol/L (98-107) Carbon Dioxide Level 29 mmol/L (21-32) Anion Gap 7 (6-14) Blood Urea Nitrogen 15 mg/dL (7-20) Creatinine 0.7 mg/dL (0.6-1.0) Estimated GFR (Cockcroft-Gault) 98.9 BUN/Creatinine Ratio 21 (6-20) Glucose Level 103 mg/dL (70-99) Calcium Level 8.7 mg/dL (8.5-10.1) Total Bilirubin 0.1 mg/dL (0.2-1.0) Aspartate Amino Transf (AST/SGOT) 14 U/L (15-37) Alanine Aminotransferase (ALT/SGPT) 23 U/L (14-59) Alkaline Phosphatase 85 U/L (46-116) Total Protein 7.2 g/dL (6.4-8.2) Albumin 3.3 g/dL (3.4-5.0) Albumin/Globulin Ratio 0.8 (1.0-1.7) Lipase 118 U/L (73-393) VTE Prophylaxis Ordered VTE Prophylaxis Devices: Yes VTE Pharmacological Prophylaxi: Yes Assessment/Plan Assessment/Plan 1. Biliary colic 2. GB neck stone 3. Depression NOS PLAN: NPO, IVF LAp sheng later GI and GS consulted Nilay MILLER MD over phone last night Nilay pt and log buncher SHEILA OSORIO MD Jan 06, 2017 10:21
[2017-01-06] MEDS ORDERED: PROPOFOL 20 ML IV ONE (10:30)
[2017-01-06] MEDS ORDERED: LIDOCAINE 2% PF Vial for OR 5 ML VIAL. ONE (10:30)
[2017-01-06] MEDS ORDERED: fentaNYL PF VIAL 100 MCG/2 ML VIAL ONE (10:30)
[2017-01-06] MEDS ORDERED: ROCURONIUM 100 MG/10 ML VIAL. ONE (10:31)
[2017-01-06] MEDS: buPROPion XL 150 MG TAB.ER.24H. PO SCH (10:47)
[2017-01-06 11:06] VITALS: BP 115/75
[2017-01-06] MEDS ORDERED: SURGICEL HEMOSTAT 4X8 EACH. ONE (12:45)
[2017-01-06] MEDS ORDERED: IOHEXOL 300 MG/ML 50 ML VIAL. ONE ×2 (12:45→12:46)
[2017-01-06] MEDS ORDERED: BUPIVACAINE-EPI 0.5%-1:200000 50 ML VIAL. ONE (12:45)
[2017-01-06] MEDS ORDERED: DEXAMETHASONE SOD PHOS 20 MG/5 ML VIAL. ONE (13:19)
[2017-01-06] MEDS ORDERED: NEOSTIGMINE 10 MG/10 ML VIAL. ONE (13:19)
[2017-01-06] MEDS ORDERED: GLYCOPYRROLATE 1 MG/5 ML VIAL. ONE (13:19)
[2017-01-06] MEDS ORDERED: DESFLURANE 31 TO 60 MINUTES IH ONE (13:21)
[2017-01-06] MEDS ORDERED: ONDANSETRON PF 4 MG/2 ML VIAL. ONE (13:25)
--- NOTE | 2017-01-06 14:04 | RAD ---
Indication protocol study. Assess for potential complication. Assess for potential choledocholithiasis. For members of the Department of surgery fluoroscopy was provided. 2 spot images were obtained. Fluoroscopy time associated with the examination has been indicated as 0.8 minutes. Those intrahepatic radicles which are seen appear unremarkable. The common hepatic and common bile ducts appear normal. No filling defects are seen. Contrast flows unremarkably into the duodenum. IMPRESSION: Normal operative cholangiogram
--- NOTE | 2017-01-06 14:26 | PDOC4 ---
Operative Note Operative Note Operative Note: Preoperative Diagnosis: Calculus cholecystitis Postoperative Diagnosis: Acute cholecystitis Procedure: Laparoscopic cholecystectomy with intraoperative cholangiogram Surgeons: Michael Top Cleaner: Cheryl SOTELO Anesthesia: Gen. Estimated Blood Loss: 25 mL Specimen: Gallbladder to pathology Drains: None Complications: None Indications: The patient is a 31-year-old female who is been experiencing recurrent upper abdominal pain consistent with biliary colic. Her evaluation included a sonogram which showed gallstones and concern for possible cholecystitis. Surgical treatment was offered by means of a laparoscopic cholecystectomy. The risks of surgery were discussed which include bleeding, infection, bile duct injury, bile leak, pain, the potential for additional surgeries or procedures. The patient understands and would like to proceed. Description: The patient was taken to the operating room and laid supine on the operating table. General anesthesia was performed. The abdomen was prepped with ChloraPrep and draped in a standard surgical fashion. A small infraumbilical incision was made with a scalpel. The Veress needle was then inserted and a pneumoperitoneum was then created. A 5 mm trocar was then inserted and the laparoscope was introduced. In the upper midabdomen an 11 mm trocar was inserted and in the right upper quadrant one 2.3 mm mini lap grasper was inserted, and a 5 mm trocar was inserted. The gallbladder appeared distended with thickening and edema of the wall. Approximately 40 mL of clear fluid was aspirated from the gallbladder providing decompression. The gallbladder was retracted cephalad. The cystic duct was dissected free from surrounding tissues. One clip was placed on the duct near the gallbladder junction. An opening was made in the duct and a cholangiocatheter placed within and secured with a clip. Using contrast dye and fluoroscopy an intraoperative cholangiogram was performed that appeared unremarkable. The clip and catheter were then withdrawn. Three clips were placed on the cystic duct and it was divided. The cystic artery was then identified, dissected free , doubly clipped and divided as well. The gallbladder was then mobilized away from the liver with cautery. The umbilical 5 millimeter trocar was exchanged for an 11 millimeter trocar. The gallbladder was then placed in an endoscopic bag and extracted at the superior trocar site. The fascia there was closed with an 0 Vicryl suture. All blood and irrigation fluid was suctioned and hemostasis was good. The remaining ports were removed and the pneumoperitoneum was relieved. The skin incisions were injected with half percent Marcaine with epinephrine, and all were closed using 4-0 Monocryl suture. Steri-Strips and dressings were then applied. The patient tolerated the procedure well and was sent to the recovery room in stable condition. At the end of the case all counts were correct. ARNOLDO SPANGLER MD Jan 06, 2017 14:26
[2017-01-06] MEDS ORDERED: KETOROLAC TROMETHAMINE 30 MG/ML INJ. IV PRN (14:30)
[2017-01-06] MEDS ORDERED: oxyCODONE/APAP 5/325 1 TAB TABLET PO PRN (14:30)
[2017-01-06] MEDS: fentaNYL PF VIAL 100 MCG/2 ML VIAL IV PRN ×4 (14:37→15:13)
[2017-01-06 16:04] VITALS: BP 121/84
[2017-01-06] MEDS: oxyCODONE/APAP 5/325 1 TAB TABLET PO PRN (18:36)
[2017-01-06 19:00] VITALS: BP 125/80
[2017-01-06] MEDS ORDERED: FAMOTIDINE 20 MG/2 ML VIAL IVP SCH (21:00)
[2017-01-06 23:00] VITALS: BP 102/70
--- NOTE | 2017-01-06 23:45 | ACF ---
Admission Forms Criteria ABDOMINAL PAIN Clinical Indications for Admission to Inpatient Care (Place 'X' for any and all applicable criteria): Admission is indicated for ANY ONE of the following(1)(2)(3)(4)(5): [X]I. Inpatient admission required rather than observation care (Also use Abdominal Pain: Observation Care, as appropriate) because of ANY ONE of the following: [ ]a) Severe pain requiring acute inpatient management [X]b) Identification of etiology/finding that requires inpatient care (eg, aortic dissection, free air) [ ]c) Absent bowel sounds with complete ileus(6) [ ]d) Suspected toxic megacolon [ ]e) Severe electrolyte abnormalities requiring inpatient care [ ]f) High fever or infection requiring inpatient admission as indicated by ANY ONE of following(7)(8): [ ] i) Appropriate outpatient or observational care antimicrobial treatment unavailable, not effective, or not feasible [ ] ii) Documented bacteremia [ ] iii) Temperature > 104.9 degrees F (oral) [ ] iv) T >103.1 F (oral) or < 96.8 F(rectal) that does not respond to all emergency treatment measures [ ]g) Signs of intestinal obstruction [B] [ ]h) Hemodynamic instability [ ]i) IV fluid to replace significant ongoing losses (greater than 3 L/m2 per day) (12)(13) [ ]j) Percutaneous or open drainage (eg, abscess, biliary tract ) procedures [ ]k) Parenteral nutrition regimen that must be implemented on inpatient basis [ ]l) Other condition,treatment or monitoring requiring inpatient admission. [ ]II. Peritoneal signs present [ ]III. Surgery needed that cannot be performed on an ambulatory basis. [ ]IV. Evaluation requires patient to not eat or drink for extended period ( eg, more than 24 hours). [ ]V. Contraindications and/or Inappropriate clinical situations for Observational Care in patients with abdominal pain, when ANY ONE of the following is required: [ ]a) Thorough evaluation is required to prevent catastrophic events due to delays in diagnosing (e.g.Mesenteric ischemia) 1,3 [ ]b) Patient with severe pathology or with chronic symptoms unlikely to improve in the ED stay (3) [ ]. General contraindications and/or Inappropriate clinical situations for Observational Care in patients with abdominal pain, when ANY ONE of the following is required: [ ]a) Prediction of prolongation of LOS based on ANY ONE of the following may be considered as a contraindication for observational care 2, 3, 4, 5, 6, 7, 8, 9, 10, 11 [ ]i) Age > 65 yrs. [ ]ii) Patient arriving by ambulance [ ]iii) Patient with high acuity [ ]iv) Patient requiring vital sign monitoring [ ]v) Patient on IV medication [ ]b) Systolic blood pressures 180mmHg 3,12 [ ]c) Patient with altered mental status including delirium and other alteration of consciousness, (3) [ ]d) Patient whose discharge disposition will be to a residential home or rehabilitation home should not be managed in Emergency Department Observation Unit. CMS rule requires 3 days hospital stay before such placement.3,13 [ ]e) Patient with failure to thrive due to broad array of etiologies 3,16,17 [ ]f) Inability to ambulate 3,14 Extended stay beyond goal length of stay may be needed for(2)(3): [ ]a) Persistent abdominal pain with suspected intra-abdominal process [ ]b) Diagnosed condition requiring continued stay (e.g., pancreatitis, complicated diverticulitis) [ ]c) Surgery (e.g., colectomy) The original [facility] content created by [employer] has been revised. The portions of the content which have been revised are identified through the use of italic text or in bold, and [facility] has neither reviewed nor approved the modified material.All other unmodified content is copyright [facility] [employer]. Please see references footnoted in the original [facility] edition 2016 Admission Criteria Met?: Yes AD CAMPBELL Jan 06, 2017 23:45
[2017-01-07] MEDS: oxyCODONE/APAP 5/325 1 TAB TABLET PO PRN ×2 (00:19→07:13)
[2017-01-07 03:00] VITALS: BP 106/74
[2017-01-07 07:00] VITALS: BP 105/74
[2017-01-07] MEDS: buPROPion XL 150 MG TAB.ER.24H. PO SCH (07:11)
[2017-01-07] MEDS ORDERED: OXYC-323 PO (10:51)
--- NOTE | 2017-01-07 10:53 | PDOC3 ---
Discharge Summary Visit Information Date of Admission: Jan 06, 2017 Date of Discharge: Jan 07, 2017 Admitting Diagnosis Comment: 1. Biliary colic s/p lap sheng POD # 1 2. GB neck stone 3. Depression NOS Final Diagnosis Problems Medical Problems: (1) Biliary colic Status: Acute Brief Hospital Course Allergies Allergies Coded Allergies Type Severity Reaction Last Updated Verified No Known Medication Allergies Allergy Unknown 01/06/17 Yes amoxicillin Adverse Reaction Intermediate "N/V/D" 01/06/17 No Vital Signs Vital Signs Date Time Temp Pulse Resp B/P (MAP) Pulse Ox O2 Delivery O2 Flow Rate FiO2 01/07/17 08:13 Room Air 01/07/17 07:00 98.1 93 18 105/74 (84) 96 98.1 01/06/17 19:36 2.0 Lab Results Laboratory Tests Test 01/06/17 00:50 01/06/17 01:45 01/06/17 02:25 Bedside Urine HCG, Qualitative Hcg negative (Negative) Urine Collection Type Unknown Urine Color Yellow Urine Clarity Clear Urine pH 6.5 Urine Specific Crowley 1.020 Urine Protein Negative mg/dL (NEG-TRACE) Urine Glucose (UA) Negative mg/dL (NEG) Urine Ketones (Stick) Negative mg/dL (NEG) Urine Blood Negative (NEG) Urine Nitrite Negative (NEG) Urine Bilirubin Negative (NEG) Urine Urobilinogen Dipstick 0.2 mg/dL (0.2 mg/dL) Urine Leukocyte Esterase Negative (NEG) Urine RBC 0 /HPF (0-2) Urine WBC Occ /HPF (0-4) Urine Squamous Epithelial Cells Few /LPF Urine Bacteria Mod /HPF (0-FEW) Urine Mucus Slight /LPF White Blood Count 9.3 x10^3/uL (4.0-11.0) Red Blood Count 4.58 x10^6/uL (3.50-5.40) Hemoglobin 13.3 g/dL (12.0-15.5) Hematocrit 40.5 % (36.0-47.0) Mean Corpuscular Volume 88 fL (79-100) Mean Corpuscular Hemoglobin 29 pg (25-35) Mean Corpuscular Hemoglobin Concent 33 g/dL (31-37) Red Cell Distribution Width 13.6 % (11.5-14.5) Platelet Count 300 x10^3/uL (140-400) Neutrophils (%) (Auto) 58 % (31-73) Lymphocytes (%) (Auto) 31 % (24-48) Monocytes (%) (Auto) 7 % (0-9) Eosinophils (%) (Auto) 2 % (0-3) Basophils (%) (Auto) 1 % (0-3) Neutrophils # (Auto) 5.4 x10^3uL (1.8-7.7) Lymphocytes # (Auto) 2.9 x10^3/uL (1.0-4.8) Monocytes # (Auto) 0.7 x10^3/uL (0.0-1.1) Eosinophils # (Auto) 0.2 x10^3/uL (0.0-0.7) Basophils # (Auto) 0.1 x10^3/uL (0.0-0.2) Sodium Level 140 mmol/L (136-145) Potassium Level 4.0 mmol/L (3.5-5.1) Chloride Level 104 mmol/L (98-107) Carbon Dioxide Level 29 mmol/L (21-32) Anion Gap 7 (6-14) Blood Urea Nitrogen 15 mg/dL (7-20) Creatinine 0.7 mg/dL (0.6-1.0) Estimated GFR (Cockcroft-Gault) 98.9 BUN/Creatinine Ratio 21 (6-20) Glucose Level 103 mg/dL (70-99) Calcium Level 8.7 mg/dL (8.5-10.1) Total Bilirubin 0.1 mg/dL (0.2-1.0) Aspartate Amino Transf (AST/SGOT) 14 U/L (15-37) Alanine Aminotransferase (ALT/SGPT) 23 U/L (14-59) Alkaline Phosphatase 85 U/L (46-116) Total Protein 7.2 g/dL (6.4-8.2) Albumin 3.3 g/dL (3.4-5.0) Albumin/Globulin Ratio 0.8 (1.0-1.7) Lipase 118 U/L (73-393) Brief Hospital Course Ms. Garner is a 31 old Aa female admitted for bilairy colic, had GB Neck stone, underwent lap sheng, going home on POD # 1 - cleared by GS Ff up GS 2 weeks Pt seen and examined PO percocet Rx inc hartDw Dr. Nick Hanson and RN [place] Discharge Information Condition at Discharge: Improved, Stable Follow Up: Weeks (GS 2 weeks) Disposition/Orders: D/C to Home Scheduled Bupropion Hcl (Wellbutrin Xl), 1 TAB PO DAILY, (Reported) Scheduled PRN Clonazepam (Klonopin), 1 TAB PO BID PRN for ANXIETY / AGITATION, (Reported) SHEILA OSORIO MD Jan 07, 2017 10:53
[2017-01-07 10:56] VITALS: BP 112/84
--- NOTE | 2017-01-07 11:02 | PDOC ---
Subjective: Subjective: Some pain w/ movement. Tolerating liquids. Asks if she can go home today. Objective: Vital Signs: Vital Signs Date Time Temp Pulse Resp B/P (MAP) Pulse Ox O2 Delivery O2 Flow Rate FiO2 01/07/17 10:56 98.0 100 18 112/84 (93) 93 Room Air 98.0 01/06/17 19:36 2.0 Imaging: IOC 01/06/17 IMPRESSION: Normal operative cholangiogram PE: GEN: NAD LUNGS: CTAB HEART: RRR ABD: soft NEURO/PSYCH: A & O 3 A/P: Acute cholecystitis s/p cholecystectomy 01/06/17 -- Improving post-operatively. Diet/DC per surgery. KORY TORRES Jan 07, 2017 11:02
--- NOTE | 2017-01-07 11:42 | PDOC ---
Provider Note Provider Note SURG Valentin Rodriguez POD 1 l/s sheng no c/o home today f/u in two weeks RAMÓN NAILS MD Jan 07, 2017 11:42
[2017-01-07] MEDS ORDERED: metroNIDAZOLE 500 MG TABLET PO SCH (21:00)
--- NOTE | 2017-01-08 11:09 | PATHOLOGY ---
PATHOLOGY REPORT * * * * * * * * FINAL DIAGNOSIS: Gallbladder, laparoscopic cholecystectomy: - Cholelithiasis. - Cholesterolosis. - Acute and chronic cholecystitis with increased eosinophils. COMMENT: There is no evidence of malignancy. (JPM:mgr; 01/08/2017) REPORT ELECTRONICALLY SIGNED BY: Freeman Gonzalez M.D. DATE/TIME: 01/08/2017 11:09 * * * * * * * * GROSS PATHOLOGY: Received in formalin labeled "Jeane Du, gallbladder and contents," is a 9.1 x 2.6 x 2.2 cm, intact gallbladder with pink-odell serosal surfaces. Opening the gallbladder reveals a velvety, pale odell to pink-odell mucosa and an average wall thickness of 0.1 cm. A single yellow-odell, granular calculus is present and no masses are noted grossly. Identity Management Consultant sections from the body and fundus are submitted along with the proximal margin in cassette A1. (CAA; 01/07/2017) INITIAL CPT CODE(S): A; 28676 Professional services performed [place] [facility] [address] Technical services performed by [facility] at [address] [place] [address]. SPECIMEN(S) RECEIVED: A.Gallbladder and contents CLINICAL HISTORY: Cholecystitis PATIENT: JEANE UD /AGE: 1 1985 (Age: 31) PATIENT #: [id number] ALT CASE #: SPECIMEN COLLECTION DATE: 01/06/2017 SPECIMEN RECEIVED DATE: 01/06/2017 [facility] - [address] [place] [id number] - PHONE: [phone] * * * END OF REPORT * * *
== END 2017-01-07 11:20 | disposition home or self-care (01) | DRG 419 ==
LOC: ER 01:00 → 5 SOUTH 04:20
PROVIDERS: ADMIT Internal Medicine; ATTEND Internal Medicine
PROC: BF131ZZ Fluoroscopy of Gallbladder and Bile Ducts using Low Osmolar Contrast (ICD-10-PCS; 2017-01-06)
PROC: 0FT44ZZ Resection of Gallbladder, Percutaneous Endoscopic Approach (ICD-10-PCS; principal; 2017-01-06 12:45)
DX: K80.00 Calculus of gallbladder with acute cholecystitis without obstruction (principal); F32.9 Major depressive disorder, single episode, unspecified; F41.9 Anxiety disorder, unspecified; F43.10 Post-traumatic stress disorder, unspecified; F90.9 Attention-deficit hyperactivity disorder, unspecified type; G47.00 Insomnia, unspecified; E03.9 Hypothyroidism, unspecified; F17.210 Nicotine dependence, cigarettes, uncomplicated; F12.90 Cannabis use, unspecified, uncomplicated; Z82.49 Family history of ischemic heart disease and other diseases of the circulatory system; Z88.8 Allergy status to other drugs, medicaments and biological substances; Z80.1 Family history of malignant neoplasm of trachea, bronchus and lung
CPT/HCPCS: 36415; 74300; 76705; 80053; 81001; 81025; 83690; 85027; 96361; 96374; 96375; C1769; J1100; J1885; J1956; J2001; J2270; J2405; J2704; J2710; J3010; J3490; J7030; J7120; Q9967; S0028; 99285-25

== ENCOUNTER 2017-06-19 17:24 | Emergency (ER) | payer SELFPAY | END 2017-06-19 18:24 | disposition home or self-care (01) | LOC: ER 17:24 | DX: K04.7 Periapical abscess without sinus (principal); K02.9 Dental caries, unspecified; F43.10 Post-traumatic stress disorder, unspecified; F32.9 Major depressive disorder, single episode, unspecified; F41.9 Anxiety disorder, unspecified; Z88.1 Allergy status to other antibiotic agents | CPT/HCPCS: 99283 ==

== ENCOUNTER 2019-02-27 10:14 | Emergency (ER) | payer SELFPAY ==
[~2019-02-27] VITALS: Ht 167.6 cm; Wt 71.7 kg
[~2019-02-27 10:14] MED LIST changes: +AMOX500T PO; +BUPR150T15 PO; +CLON0.5T PO; +HYDR-3164 PO; -HYDR-971 PO; +OXYC1TAB15 PO; +TRAM-48 PO
[2019-02-27 10:30] VITALS: BP 119/74
--- NOTE | 2019-02-27 10:59 | PHYS DOC ---
Past Medical History Past Medical History: Anxiety, Depression Additional Past Medical Histor: ptsd, "cutting," allergic rhinitis, seasonal allergies Past Surgical History: Other Additional Past Surgical Histo: LEEP Procedure Alcohol Use: Occasionally Drug Use: Marijuana (socially) Adult General Chief Complaint Chief Complaint: Congestion HPI HPI Patient is a 33 year old female, accompanied by her significant other, who presents to the emergency department with complaints of nasal congestion and allergy problems for the last 4 days. Patient states she had to call in to work sick yesterday and needs a work excuse. She denies any fever, nausea, vomiting, diarrhea, abdominal pain, rash, sore throat, or shortness of breath. She reports bilateral sinus pressure, nasal congestion, sneezing, runny nose, dry cough, scratchy throat, and bilateral ear fullness. Currently, she rates her discomfort a 5 out of 10 on the pain scale, she denies any alleviating or exacerbating factors. Patient states that she has not been using her Flonase nasal spray as she's supposed to. Review of Systems Review of Systems Constitutional: Denies fever or chills [] Eyes: Denies change in visual acuity, redness, or eye pain [] HENT: see HPI Respiratory: Denies wheezing or shortness of breath; see HPI Cardiovascular: No additional information not addressed in HPI [] GI: Denies abdominal pain, nausea, vomiting, or diarrhea [] Musculoskeletal: Denies back pain or joint pain [] Integument: Denies rash or skin lesions [] Neurologic: Denies headache Complete systems were reviewed and found to be within normal limits, except as documented in this note. Allergies Allergies Allergies Coded Allergies Type Severity Reaction Last Updated Verified No Known Medication Allergies Allergy Unknown 01/06/17 Yes amoxicillin Adverse Reaction Intermediate "N/V/D" 01/06/17 No Physical Exam Physical Exam Constitutional: Well developed, well nourished, no acute distress, non-toxic appearance. [] HENT: Normocephalic, atraumatic, bilateral external ears normal, left TM normal, R canal cerumen impaction, posterior pharynx congested, oropharynx moist, no oral exudates, nasal turbinates edematous and erythematous bilat Eyes: PERRLA, EOMI, conjunctiva normal, no discharge. [] Neck: Normal range of motion, no tenderness, supple, no stridor. [] Cardiovascular:Heart rate regular rhythm, no murmur [] Lungs & Thorax: Bilateral breath sounds clear to auscultation [] Skin: Warm, dry, no erythema, no rash. [] Back: No tenderness Extremities: No cyanosis, ROM intact, no edema. [] Neurologic: Alert and oriented X 3, no focal deficits noted. [] Psychologic: Affect normal, judgement normal, mood normal. [] Current Patient Data Vital Signs Vital Signs Date Time Temp Pulse Resp B/P (MAP) Pulse Ox O2 Delivery O2 Flow Rate FiO2 02/27/19 10:30 98.6 90 19 119/74 (89) 97 Room Air 98.6 EKG EKG [] Radiology/Procedures Radiology/Procedures [] Course & Med Decision Making Course & Med Decision Making Pertinent Labs and Imaging studies reviewed. (See chart for details) [] Dragon Disclaimer Dragon Disclaimer This electronic medical record was generated, in whole or in part, using a voice recognition dictation system. Departure Departure Impression: Primary Impression: Allergic rhinitis Referrals: UNKNOWN PCP NAME (PCP) Patient Instructions: Allergic Rhinitis Additional Instructions: Recommend that you take 10 mg of generic Zyrtec (cetirizine) or Claritin at bedtime and use over the counter Flonase (fluticasone) nasal spray 2 sprays each nostril once daily in the morning. You may take Tylenol or ibuprofen as needed for pain/fever. Increase clear fluids. Avoid triggers such as smoke, fragrance, dust, and pollen. You may take OTC cough suppressants as needed. Follow-up with your primary care doctor if symptoms persist, return to the ER if symptoms worsen. Problem Qualifiers Primary Impression: Allergic rhinitis Allergic rhinitis trigger: unspecified Allergic rhinitis seasonality: unspecified Qualified Codes: J30.9 - Allergic rhinitis, unspecified GILDARDO WELLS WAREDRESSER Feb 27, 2019 10:59
== END 2019-02-27 11:06 | disposition home or self-care (01) ==
LOC: ER 10:14
DX: J30.9 Allergic rhinitis, unspecified (principal); F41.9 Anxiety disorder, unspecified; F32.9 Major depressive disorder, single episode, unspecified; Z88.1 Allergy status to other antibiotic agents
CPT/HCPCS: 99281